=== PATIENT | male | born 1975 ===

== ENCOUNTER 2024-02-16 07:37 | Emergency (ER) | payer OTHER, MEDICAID, SELFPAY ==
--- NOTE | ~2024-02-16 | CT_ITS ---
EXAMINATION: CT abd pelvis lumbar w con DATE: 02/16/2024 08:39 INDICATION: Left flank pain. Hematuria. Fall. TECHNIQUE: Computed tomography (CT) of the abdomen and pelvis and lumbar spine was performed with 100 mL Omnipaque 350 intravenous contrast. Automated exposure control and iterative reconstruction techn ique were employed. The dose-length product was 738.85 mGy-cm. COMPARISON: None FINDINGS: CT ABDOMEN AND PELVIS: The visualized portions of the lung bases demonstrate mild atelectasis. No ple ural effusion. The heart size is normal. No pericardial effusion. Calcifications in the liver and spl een are consistent with old granulomatous disease. The gallbladder, pancreas, adrenal glands, and kid neys are normal. There is diffuse bladder wall thickening. There are no dilated loops of bowel. The a ppendix is not visualized. There are no pathologically enlarged lymph nodes. There is no free intrape ritoneal fluid. CT LUMBAR SPINE: Bone alignment is normal. There is mild chronic anterior wedging of T12 vertebral kev dy. There is mildly decreased disc height at L4-L5. The following disc levels are specifically discus sed: L1-L2: The disc does not extend beyond the endplate margin. There is moderate bilateral facet joint o steoarthritis. There is no neural foraminal stenosis. There is no central canal stenosis. L2-L3: The disc does not extend beyond the endplate margin. There is moderate right and mild left fac et joint osteoarthritis. There is no neural foraminal stenosis. There is no central canal stenosis. L3-L4: The disc does not extend beyond the endplate margin. There is mild bilateral facet joint osteo arthritis. There is no neural foraminal stenosis. There is no central canal stenosis. L4-L5: The disc is bulging. There is mild bilateral facet joint osteoarthritis. There is mild bilater al neural foraminal stenosis. There is mild central canal stenosis. L5-S1: The disc is bulging. There is severe bilateral facet joint osteoarthritis. There is moderate r ight and mild left neural foraminal stenosis. There is no central canal stenosis. IMPRESSION: 1. Diffuse bladder wall thickening, consistent with cystitis. 2. Mild lumbar spondylosis. Reviewed, dictated and finalized at location A.
[2024-02-16 07:43] VITALS: BP 147/94; PULSE 91; RESP 18; TEMP 36.7; O2SAT 100
--- NOTE | 2024-02-16 07:50 | ED.FALL ---
HPI - Fall General Chief Complaint: Fall Stated Complaint: fall, back pain Time Seen by Provider: 02/16/24 07:50 Source: patient and family ( ) Mode of arrival: ambulatory Limitations: no limitations History of Present Illness HPI Narrative: Patient presents with low back pain and penile pain and hematuria after a fall from a step ladder yesterday. Patient was on the 2nd from the bottom step of a step ladder and fell onto his back. This occurred while at home. 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 He has not yet taken anything for pain. He denies any abdominal pain. He was initially having some difficulty with urination but this morning was incontinent of urine and had pain while attempting to urinate and had bloody urine in which he also passed a clot. Not on anticoagulation. Has some pain radiating down the posterior aspects of bilateral proximal thighs Related Data Allergies Allergy/AdvReac Type Severity Reaction Status Date / Time No Known Allergies Allergy Unknown Other Verified 02/16/24 08:44 [facility] Surgical History Surgical History History of circumcision Family History Family History (Updated 04/23/16 @ 23:19 by DOCTOR UNKNOWN) Mother Family history of diabetes mellitus in first degree relative Social History Social History (Updated 02/16/24 @ 08:32 by Kristin Lynn MD) Second hand tobacco smoke exposure: Yes Alcohol intake: current Living arrangements: with family Additional living arrangements comments: Occupation/Education: occupation Additional 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 HEAD: Normocephalic, atraumatic. EYES: Non injected, non icteric ENT: Nares clear, no rhinorrhea or epistaxis. NECK: Supple. CHEST: Speaking in full sentences. No respiratory distress. HEART: Regular rate and rhythm. . ABDOMEN: Soft, nondistended. EXTREMITIES/BACK: Patient demonstrates flexion and extension at the lumbar spine. No edema. No tenderness to palpation of lumbar spine Which are midline. No bony step-offs/bony processes. : Normal circumcised male genitalia. SKIN: Warm, dry, no rash. NEURO: No focal deficits. Alert and oriented x3. 5/5 strength with knee flexion/extension, dorsiflexion/plantarflexion, hip flexion/abduction/adduction bilaterally. Straight leg raise negative. Sensation intact throughout. PSYCH: Normal mood and affect. Course Vital Signs Vital signs: Vital Signs Temperature 98.1 F 02/16/24 07:43 Pulse Rate 91 02/16/24 07:43 Respiratory Rate 18 02/16/24 07:43 Blood Pressure 147/94 H 02/16/24 07:43 Pulse Oximetry 100 02/16/24 07:43 Oxygen Delivery Room Air 02/16/24 07:43 Temperature 98.1 F 02/16/24 07:43 Pulse Rate 80 02/16/24 11:32 Respiratory Rate 16 02/16/24 11:32 Blood Pressure 133/91 H 02/16/24 11:32 Pulse Oximetry 100 02/16/24 11:32 Oxygen Delivery Room Air 02/16/24 07:43 MDM - Fall MDM Narrative Medical decision making narrative: Patient presents with back pain hematuria. He fell from the 2nd step a step yesterday was feeling okay except for some mild back pain but the pain got worse today (has not yet taken analgesia medication) and he had difficulty urinating and then was incontinent of urine and had hematuria. In the emergency department he is afebrile with vital signs notable for hypertension. Will obtain labs, given analgesia, and obtain CT imaging of abdomen pelvis with recon images of the spine. Patient is reassessed and is feeling much better. While there is consideration of cauda equina or other significant traumatic injurites, patient had no motor sensory deficits or midline pain or tenderness and benign abdominal exam thus I do attribute his hematuria and dysuria and incontinence to the UTI, especially with cor
[2024-02-16 07:54] LABS: Basophils Percent Auto 0.2 % (0.2-1.2); Eosinophils Absolute Auto 0.1 K/mm3 (0-0.3); Eosinophils Percent Auto 0.4 % (0-4.4); Hematocrit 47.4 % (42.0-52.0); Hemoglobin 15.7 g/dL (14.0-18.0); Immature Granulocyte Absolute 0.05 K/mm3 (0.00-0.031); Immature Granulocyte Percent A 0.3 % (0-0.5); Lymphocytes Absolute Auto 1.59 K/mm3 (0.9-3.2); Lymphocytes Percent Auto 9.8 % (18.3-44.2); Mean Corpuscular HGB Conc 33.1 g/dl (32-36); Mean Corpuscular Hemoglobin 29.8 pg (26-34); Mean Corpuscular Volume 90.1 fl (80-100); Mean Platelet Volume 9.2 fl (7.4-10.4); Monocytes Absolute Auto 1.2 K/mm3 (0.1-0.6); Monocytes Percent Auto 7.4 % (2.6-8.5); Neutrophils Absolute Auto 13.3 K/mm3 (1.3-6.7); Neutrophils Percent Auto 81.9 % (45.5-73.1); Platelet Count Result 197 k/mm3 (150-375); Red Blood Count 5.26 M/mm3 (4.6-6.20); Red Cell Distribution Width 12.5 % (11.5-14.5); White Blood Count 16.2 K/mm3 (4.5-10.0)
[2024-02-16 08:15] LABS: Alanine Aminotransferase 37 U/L (6-50); Albumin Level 4.3 g/dL (3.5-5.1); Alkaline Phosphatase 77 U/L (38-126); Anion Gap 5 mmol/L (4-12); Aspartate Amino Transferase 39 U/L (17-59); Bilirubin,Total 1.2 mg/dL (0.2-1.3); Blood Urea Nitrogen 19 mg/dL (9-20); Calcium 8.9 mg/dL (8.4-10.2); Carbon Dioxide 27 mmol/L (22-30); Chloride 103 mmol/L (98-107); Estimated CRCL calculation 115 ml/min; Estimated Glomerular Filt Rate > 60; Glucose 123 mg/dL (65-110); Potassium 3.7 mmol/L (3.4-5.0); Sodium 135 mmol/L (137-145)
[2024-02-16 08:26] LABS: INR 0.9; Prothrombin Time 12.8 Seconds (11.1-14.7)
[2024-02-16 08:27] LABS: Partial Thromboplastin Time 31.7 Seconds (22.3-36.8)
[2024-02-16] MEDS: MORPHINE SULFATE (*CRX) 4 MG/ML INJ IV PUSH (08:43)
[2024-02-16 09:32] VITALS: BP 128/81; PULSE 81; RESP 16; O2SAT 100
[2024-02-16 10:02] VITALS: BP 104/69; PULSE 83; RESP 14; O2SAT 100
[2024-02-16 10:31] VITALS: BP 121/80; PULSE 73; RESP 16; O2SAT 100
[2024-02-16 10:51] LABS: Appearance Urine Clear (Clear); Bacteria Urine None Seen /hpf; Bilirubin Urine Negative (Negative); Blood Urine 3+ (Negative); Color Urine Yellow (Yellow); Glucose Urine UA Negative (Negative); Ketones Urine Negative (Negative); Leukocyte Esterase Ur Negative LEU/UL (Negative); Need Manual Microscopic Reviewed; Nitrate Urine Negative (Negative); Non Pathogenic Casts 0-2; Protein Urine 1+ mg/dL (Negative); RBC Urine 51-100 /hpf (0-2); Squamous Epithelial Cell Urine None Seen /hpf (Few)
[2024-02-16 10:52] LABS: Specific Grav Ur 1.086 (1.001-1.035)
[2024-02-16 11:02] VITALS: BP 134/89; PULSE 84; RESP 18; O2SAT 100
[2024-02-16 11:05] LABS: WBC Urine 21-30 /hpf (0-3)
[2024-02-16 11:21] LABS: Add Urine Microscopic? YES
[2024-02-16 11:32] VITALS: BP 133/91; PULSE 80; RESP 16; O2SAT 100
--- NOTE | 2024-02-24 13:09 | PC.NURSE ---
LATE ENTRY This note is being entered to document information to the patient's record. The following information was omitted on [02/16/24], by [Tavo Morales RN]. rocephin stop time was 1235.
== END 2024-02-16 12:49 | disposition home or self-care (01) ==
PROVIDERS: Emergency Provider Student in an Organized Health Care Education/Training Program; PCP Nurse Practitioner Family
DX: S39.92XA Unspecified injury of lower back, initial encounter (principal); N30.91 Cystitis, unspecified with hematuria; D72.829 Elevated white blood cell count, unspecified; M47.816 Spondylosis without myelopathy or radiculopathy, lumbar region; Z77.22 Contact with and (suspected) exposure to environmental tobacco smoke (acute) (chronic); W11.XXXA Fall on and from ladder, initial encounter
CPT/HCPCS: 36415; 72132; 74177; 80053; 81001; 85025; 85610; 85730; 87077; 87086; 87088; 87186; 96365; 96375; 99284; J0696; J2270; Q9967